=== PATIENT | female | born 1980 | race Caucasian/White ===

== ENCOUNTER 2016-07-19 22:16 | Emergency (ER) | payer SELFPAY ==
[~2016-07-19] VITALS: Ht 152.4 cm; Wt 90.0 kg
[2016-07-19] MEDS ORDERED: KETOROLAC TROMETHAMINE 30 MG/ML VIAL IM ONE (23:30)
[2016-07-19] MEDS ORDERED: DiphenhydrAMINE HCL 50 MG/ML VIAL IM ONE (23:30)
[2016-07-19] MEDS ORDERED: METOCLOPRAMIDE HCL 5 MG/ML 2 ML VIAL IM ONE (23:30)
[2016-07-20 00:32] VITALS: BP 126/83
== END 2016-07-20 01:05 | disposition home or self-care (01) ==
LOC: EMS 22:20
DX: G43.909 Migraine, unspecified, not intractable, without status migrainosus (principal)
CPT/HCPCS: 96372; 99284; J1200; J1885; J2765

== ENCOUNTER 2022-09-17 11:50 | Emergency (ER) | payer MEDICAID ==
[~2022-09-17] VITALS: Ht 157.5 cm; Wt 101.4 kg
[2022-09-17 12:16] LABS: BASOPHILS % (AUTO) 0.6 % (0.0-2.0); EOSINOPHILS % (AUTO) 2.2 % (1.0-6.0); HEMATOCRIT 42.2 % (36-46); HEMOGLOBIN 13.7 g/dL (12.0-16.0); LYMPHOCYTES # (AUTO) 1.5 K/uL (1.0-4.8); LYMPHOCYTES % (AUTO) 15.7 % (22.0-44.0); MEAN CORPUSCULAR HEMOGLOBIN 26.3 pg (26.0-34.0); MEAN CORPUSCULAR HGB CONC 32.5 G/dL (31.0-37.0); MEAN CORPUSCULAR VOLUME 81 fL (80-100); MONOCYTES # (AUTO) 0.6 K/uL (0.1-1.0); MONOCYTES % (AUTO) 6.7 % (2.0-9.0); NEUTROPHILS # (AUTO) 7.2 K/uL (1.8-7.7); NEUTROPHILS % (AUTO) 74.8 % (40.0-70.0); PLATELET COUNT (AUTO) 206 K/uL (150-450); RED BLOOD CELL COUNT(AUTO) 5.21 MIL/uL (4.00-5.20); RED CELL DISTRIBUTION WIDTH 13.7 % (11.5-14.5)
[2022-09-17 12:34] LABS: ANION GAP 10 mmol/L (8-16); CALCIUM, TOTAL 8.9 mg/dL (8.8-10.5); CARBON DIOXIDE 26 mmol/L (22-29); CHLORIDE 104 mmol/L (98-107); CREATININE 0.79 mg/dL (0.60-1.30); GLOMERULAR FILTR. RATE CALC > 60 mL/min (>60); GLUCOSE,RANDOM 146 mg/dL (70-110); POTASSIUM 3.8 mmol/L (3.5-5.1); SODIUM SERUM 140 mmol/L (136-145)
[2022-09-17 12:37] LABS: ALANINE AMINOTRANSFERASE 46 U/L (12-78); ALBUMIN 3.4 g/dL (3.4-5.0); ALKALINE PHOSPHATASE 84 U/L (46-116); AMYLASE 35 U/L (25-115); ASPARTATE AMINOTRANSFERASE 26 U/L (15-37); BILIRUBIN,TOTAL 0.8 mg/dL (0.1-1.0); HCG,QUANTITATIVE < 1 mIU/mL (0-6); LIPASE 45 U/L (73-393); TOTAL PROTEIN, SERUM 7.5 g/dL (6.4-8.2)
[2022-09-17] MEDS ORDERED: SODIUM CHLORIDE 0.9% 1,000 ML IV ONE (13:30)
[2022-09-17] MEDS ORDERED: ONDANSETRON HCL 4 MG/2 ML VIAL IVP ONE (13:30)
[2022-09-17] MEDS ORDERED: KETOROLAC TROMETHAMINE 30 MG/ML VIAL IVP ONE (13:30)
[2022-09-17 14:09] LABS: APPEARANCE,URINE HAZY (CLEAR); BILIRUBIN,URINE NEGATIVE (NEGATIVE); GLUCOSE, URINE (UA) NEGATIVE (NEGATIVE); KETONES,URINE NEGATIVE (NEGATIVE); LEUKOCYTE ESTERASE ,URINE LARGE (NEGATIVE); NITRATE,URINE NEGATIVE (NEGATIVE); OCCULT BLOOD,URINE LARGE (NEGATIVE); PROTEIN,URINE 100-200,SEE CONFIRM mg/dL (NEGATIVE); SPECIFIC GRAVITIY, URINE 1.016 (1.003-1.030); UROBILINOGEN,URINE <=1.0 mg/dL (<=1.0)
[2022-09-17 14:50] LABS: SQUAMOUS EPITHELIAL CELL,UR Few /LPF (None Seen); SULFOSALICYLIC ACID,URINE 3+ (Negative)
[2022-09-17 14:51] LABS: BACTERIA,URINE Moderate /HPF (None Seen)
[2022-09-17] MEDS ORDERED: CefTRIAXone 1 GM/DEXTROSE 50 ML IV ONE (15:45)
[2022-09-17] MEDS ORDERED: IBUP-1554 PO (16:08)
[2022-09-17] MEDS ORDERED: ONDA-104 PO (16:09)
[2022-09-17] MEDS ORDERED: CEPH-558 PO (16:09)
[2022-09-17 16:22] VITALS: BP 119/54
== END 2022-09-17 16:27 | disposition home or self-care (01) ==
LOC: EMS 11:50
DX: N39.0 Urinary tract infection, site not specified (principal); R10.31 Right lower quadrant pain
CPT/HCPCS: 99285; 74176; 96365; 96375; 96361; 80053; 81001; 81002; 82150; 83690; 84702; 85025; 36415; 87086; 87186; J0696; J1885; J2405; J7030

== ENCOUNTER 2023-03-16 11:55 | Emergency (ER) | payer MEDICAID ==
[~2023-03-16] VITALS: Ht 157.5 cm; Wt 97.7 kg
[~2023-03-16 11:55] MED LIST: CEPH-558 PO; IBUP-1554 PO; ONDA-104 PO
[2023-03-16 12:00] VITALS: BP 164/88; PULSE 81; RESP 16; TEMP 98.1
[2023-03-16] MEDS ORDERED: CEPH-558 PO (13:00)
[2023-03-16] MEDS ORDERED: ACET-2080 PO (13:00)
== END 2023-03-16 13:14 | disposition home or self-care (01) ==
LOC: EMS 11:55
DX: H60.12 Cellulitis of left external ear (principal); H60.02 Abscess of left external ear; R59.1 Generalized enlarged lymph nodes
CPT/HCPCS: 99283; Z7502